=== PATIENT | female | born 1980 | race Caucasian/White ===

== ENCOUNTER 2018-09-20 19:46 | Emergency (ER) | payer SELFPAY ==
[~2018-09-20] VITALS: Ht 160 cm; Wt 54.9 kg
[2018-09-20 20:14] VITALS: BP 128/74; Ht 160 cm; Wt 54.9 kg
== END 2018-09-20 22:05 | disposition left against medical advice (07) ==
LOC: ED 19:46
DX: Z53.21 Procedure and treatment not carried out due to patient leaving prior to being seen by health care provider (principal)